=== PATIENT | female | born 2000 | race Caucasian/White ===

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

== ENCOUNTER 2022-10-20 08:45 | Emergency (ER) | payer OTHER, SELFPAY ==
[2022-10-20 08:48] VITALS: BP 133/102; PULSE 95; RESP 16; TEMP 36.4; O2SAT 100; BMI 25.7
--- NOTE | 2022-10-20 09:04 | RAD_ITS ---
EXAM: XR RIGHT ANKLE COMPLETE, 3 OR MORE VIEWS CLINICAL INDICATION: Right ankle injury. TECHNIQUE: Frontal, lateral and oblique views of the right ankle. This report was created using [email or web address] report generation technology. COMPARISON: None. FINDINGS: BONES/JOINTS: Unremarkable. No acute fracture. No subluxation. Normal alignment. Preservation of the joint space. No sclerotic or destructive changes observed. SOFT TISSUES: Unremarkable. No soft tissue swelling or gas. No radiopaque foreign body. RAD/Ankle min 3 Views IMPRESSION: Negative right ankle x-rays. Electronically Signed: Markie Altamirano MD at 9:21 EST ,
--- NOTE | 2022-10-20 09:04 | ED.VIS.LOWEX ---
HPI History of Present Illness Chief Complaint: Lower Extremity Injury Informant: patient Narrative Narrative: 22-year-old female states that she sustained an inversion injury to her right ankle while going down the stairs on Friday night. She states it hurts to walk. She has not been using crutches but walking on her heel. She is worried she might have a break. She points to a generalized area over the lateral ankle. She states that pain shoots up from the ankle all the way up her leg. PFSH PFSH Medical History pars 5 defect Spondylisthesis Home Medications Zyrtec 11/12/21 [History Last Taken Unknown] Allergy/AdvReac Type Severity Reaction Status Date / Time amoxicillin trihydrate Allergy Hives Verified 10/20/22 08:48 [From Augmentin] potassium clavulanate Allergy Hives Verified 10/20/22 08:48 [From Augmentin] sulfamethoxazole Allergy Hives Verified 10/20/22 08:48 [From Bactrim] trimethoprim [From Bactrim] Allergy Hives Verified 10/20/22 08:48 Social History Smoking Status: Never smoker ROS ROS ED Constitutional Constitutional ED: Denies chills or weight loss Eyes Eyes: Denies change in vision or diplopia ENT ENT ED: Denies ear pain, rhinorrhea or sore throat Cardiovascular Cardiovascular: Denies chest pain, orthopnea, palpitations or racing heartbeat Respiratory/Chest Respiratory/Chest: Denies cough, dyspnea or orthopnea Gastrointestinal Gastrointestinal: Denies abdominal pain, diarrhea, nausea or vomiting Genitourinary Genitourinary ED: Denies dysuria, hematuria or urinary frequency Musculoskeletal Musculoskeletal: Reports other Details: See HPI ; Denies arthralgias or myalgias Integumentary Denies abscess or rash Neurologic Neurologic: Denies headache(s) or weakness Psychiatric Psychiatric: Denies anxiety, depression, suicidal ideation or suicidal thoughts Endocrine Endocrinology: Denies polydipsia, polyphagia or polyuria Allergic/Immunologic Allergic/Immunologic ED: Denies mouth swelling, tongue swelling or urticaria EXAM Physical Exam Const Vital Signs: 10/20/22 08:48 Temperature 97.5 F L Temperature Source Temporal Pulse Rate 95 Respiratory Rate 16 Blood Pressure 133/102 H Blood Pressure Mean 112 Pulse Ox 100 Oxygen Delivery Method Room Air Positive well nourished and well developed General Appearance ED: well developed HEENT Reports normocephalic, head/scalp atraumatic and moist mucous membranes Eyes PERRL and EOMs intact bilaterally Neck full ROM, no lymphadenopathy, supple and no JVD Resp normal respiratory effort and clear to auscultation bilaterally Cardio regular rate, regular rhythm and no murmurs GI normal to inspection, nondistended, normoactive bowel sounds and non-tender Palpation: soft Back/Spine no CVA tenderness and normal ROM Extremity Extremity Narrative: Patient reports tenderness to palpation just inferior to the lateral malleolus. There is no swelling or ecchymosis noted. No fifth metatarsal or fibular head pain. No medial malleolus or posterior malleolus pain. Achilles palpates intact. General Extremety ED: Negative for edema General Extremity: Negative for edema Neuro oriented x3 and CN's II-XII intact bilaterally Sensorium / Orientation: alert Motor Exam: strength 5/5 throughout Psych mental status grossly normal Mood & Affect: Negative for depressed or tearful Skin no rashes or lesions noted and no wounds MDM MDM MDM Narrative Medical decision making narrative: My interpretation of the plain films of the ankle is no acute fracture. Radiology concurs. She will be placed in an air splint and crutches as needed. Follow-up 10 to 14 days if not improved Radiography Diagnostic Testing: Clinical Impression(s) from Imaging Studies Ankle X-Ray 10/20/22 09:04 IMPRESSION: Negative right ankle x-rays. Electronically Signed: Markie Altamirano MD at 9:21 EST , Discharge Plan Triage Chief Complaint: Lower Extremity Injury ED Provider: Rajan Mortensen Dx/Rx/DC Orders Clinical Impression: Ankle sprain Instructions: ED Sprain Ankle W X Ray Prescriptions: No Action Zyrte Primary Care Provider: Care Physician,No Primary Referrals: Matteo Bean DO [Med Staff - Active Staff] - 10-14 Days if not better Care Physician,No Primary [Primary Care Provider] - Disposition Disposition: Home, Self Care
[2022-10-20 09:56] VITALS: BP 121/68; PULSE 72; RESP 15; O2SAT 98
== END 2022-10-20 10:02 | disposition home or self-care (01) ==
PROVIDERS: Emergency Provider Emergency Medicine; Visit Provider Emergency Medicine
DX: S93.401A Sprain of unspecified ligament of right ankle, initial encounter (principal); X58.XXXA Exposure to other specified factors, initial encounter
CPT/HCPCS: 73610; 99284

== ENCOUNTER 2023-02-27 16:06 | Emergency (ER) | payer OTHER, SELFPAY ==
[2023-02-27 16:07] VITALS: BP 117/91; PULSE 98; RESP 18; TEMP 36; O2SAT 98; BMI 26.1
--- NOTE | 2023-02-27 16:31 | CT_ITS ---
STUDY: CT CERVICAL SPINE WITHOUT CONTRAST REASON FOR EXAM: Female, 22 years old. neck injury RADIATION DOSAGE (If Supplied By Facility): CTDIvol = ( 16.17 ) mGy, DLP = ( 264.99 ) mGycm TECHNIQUE: High resolution transaxial imaging was performed without contrast material. Sagittal and coronal images were reconstructed. Individualized dose optimization techniques were used for this CT. COMPARISON: None FINDINGS: Normal craniovertebral junction. Normal anterior atlantoaxial articulation. Normal odontoid process. Normal cervical lordosis. Normal vertebral bodies and posterior osseous elements. C2-3: Normal endplates. Normal disc height and morphology. Normal central canal and intervertebral neuroforamina. C3-4: Normal endplates. Normal disc height and morphology. Normal central canal and intervertebral neuroforamina. C4-5: Normal endplates. Normal disc height and morphology. Normal central canal and intervertebral neuroforamina. C5-6: Normal endplates. Normal disc height and morphology. Normal central canal and intervertebral neuroforamina. C6-7: Normal endplates. Normal disc height and morphology. Normal central canal and intervertebral neuroforamina. C7-T1: Normal endplates. Normal disc height and morphology. Normal central canal and intervertebral neuroforamina. Normal visualized soft tissue structures. CT/Spine Cervical without Contras IMPRESSION: Normal unenhanced CT examination of the cervical spine. Electronically Signed: Mane Kelley DO at 17:24 EDT Reading Location ID and State: [facility] / [place] Tel [phone], Service support ,
--- NOTE | 2023-02-27 16:31 | CT_ITS ---
STUDY: CT BRAIN WITHOUT CONTRAST REASON FOR EXAM: Female, 22 years old. head injury RADIATION DOSAGE (If Supplied By Facility): CTDIvol = ( 47.06 ) mGy, DLP = ( 819.74 ) mGycm TECHNIQUE: Transaxial CT imaging of the brain was performed without administration of intravenous contrast material. Individualized dose optimization techniques were used for this CT. COMPARISON: No relevant priors. FINDINGS: Normal soft tissue structures. Normal calvarium. Normal size ventricles and extra-axial spaces for the patient''s age. Normal white matter tracts of the cerebral hemispheres. Normal basal ganglia and thalami. Normal brainstem. Normal cerebellum. There is no intracranial hemorrhage. There are no findings of an acute ischemic infarction. Normal visualized paranasal sinuses. CT/Brain/Head without Contrast IMPRESSION: Normal unenhanced CT scan of the brain. Electronically Signed: Mane Kelley DO at 17:08 EDT ,
--- NOTE | 2023-02-27 17:00 | EX.ED.GENINJ ---
HPI History of Present Illness Chief Complaint: Head Injury Informant: patient Narrative Narrative: Presents leaving work after head injury current 8 AM nearly 9 hours ago. Multiple plastic bins fell on top of her head there is no loss of consciousness. There is bruising forehead and nose. No anticoagulants. Intermittent tunnel vision dizziness and nausea since then. No history of concussions. Reports lower neck pain. No arm weakness or paresthesias. Prior similar symptoms: No PFSH PFSH Medical History pars 5 defect Spondylisthesis Home Medications Zyrtec 1 tab PO.IVFORM DAILY 11/12/21 [History Last Taken Unknown] ondansetron 4 mg disintegrating tablet 4 mg PO Q8H PRN PRN Nausea #10 tabs 02/27/23 [Rx Last Taken Unknown] prazosin 1 mg capsule 1 mg PO QHS 02/27/23 [History Last Taken Unknown] propranolol 10 mg tablet 10 mg PO DAILY PRN PRN Chest Pain 02/27/23 [History Last Taken Unknown] sertraline 100 mg tablet 150 mg PO DAILY 02/27/23 [History Last Taken Unknown] Allergy/AdvReac Type Severity Reaction Status Date / Time amoxicillin trihydrate Allergy Hives Verified 02/27/23 16:06 [From Augmentin] potassium clavulanate Allergy Hives Verified 02/27/23 16:06 [From Augmentin] sulfamethoxazole Allergy Hives Verified 02/27/23 16:06 [From Bactrim] trimethoprim [From Bactrim] Allergy Hives Verified 02/27/23 16:06 Social History Smoking Status: Never smoker ROS ROS ED Constitutional Constitutional ED: Denies chills, fever(s) or sweats Eyes Eyes: Reports blurry vision; Denies change in vision ENT ENT ED: Denies dysphagia or sore throat Cardiovascular Cardiovascular: Denies chest pain, leg edema, palpitations or racing heartbeat Respiratory/Chest Respiratory/Chest: Denies cough, dyspnea or dyspnea on exertion Gastrointestinal Gastrointestinal: Reports nausea; Denies abdominal pain, diarrhea or vomiting Genitourinary Genitourinary ED: Denies dysuria, hematuria or urinary frequency Musculoskeletal Musculoskeletal: Reports neck pain; Denies back pain or extremity pain Integumentary Denies rash or wounds Neurologic Neurologic: Reports headache(s); Denies paresthesias or weakness EXAM Physical Exam Const Vital Signs: 02/27/23 16:07 Temperature 96.8 F L Temperature Source Temporal Pulse Rate 98 Respiratory Rate 18 Blood Pressure 117/91 H Blood Pressure Mean 99 Pulse Ox 98 Oxygen Delivery Method Room Air Positive well nourished and well developed Constitutional Narrative: GCS 15 General Appearance ED: well developed and NAD HEENT Reports TM's clear and moist mucous membranes HEENT Narrative: Ecchymosis noted right frontal right nasal bridge there is no septal hematoma. No hemotympanums. normocephalic Tympanic Membrane ED: Yes TM's clear Eyes PERRL, EOMs intact bilaterally and conjunctivae normal General Eye ED: Yes normal appearance of both eyes Neck full ROM, no lymphadenopathy and supple Neck Narrative: Slight midline tenderness no step-offs. General: Negative for tenderness Chest Wall Chest: Negative for tenderness Resp normal respiratory effort and normal air movement Effort and Inspection: symmetric chest movement; Negative for respiratory distress Cardio regular rate, regular rhythm and no murmurs Peripheral Pulses: pulses 2+ throughout GI normal to inspection, nondistended, normoactive bowel sounds and non-tender Palpation: Negative for guarding or rebound tenderness present Back/Spine no CVA tenderness and no thoracic nor lumbar tenderness Extremity normal to inspection General Extremety ED: Negative for edema or tenderness General Extremity: Negative for edema Neuro oriented x3, CN's II-XII intact bilaterally and no sensory deficits noted Sensorium / Orientation: awake and alert Skin no rashes or lesions noted and no wounds MDM MDM MDM Narrative Medical decision making narrative: Interventions / MDM: Differential diagnosis: Concussion, intracranial hemorrhage, cervical neck fracture, neck sprain Diagnosis considered but do not suspect: N/A My EKG interpretation: N/A Imaging independently reviewed and interpreted by myself: CT head: No intracranial hemorrhage, CT cervical spine no fracture or dislocation. External documents reviewed: N/A Test considered but not ordered:N/A ED course: Patient waxing waning concussion symptoms since her injury. This multiple boxes hit her head she has contusion forehead and nose. Due to waxing waning symptoms CT head and neck obtained shows no acute process treat with Tylenol and Zofran. Nausea improved. Still had headache. Concussion precautions and brain rest. Appropriate work restrictions given. Occupational health follow-up. Prescription for Zofran for home. Discussed using to needed. All questions were answered. Re-evaluation: stable Disposition discussed with patient/family/significant other: Patient Case discussed with consulting clinician: N/A Radiography Diagnostic Testing: Clinical Impression(s) from Imaging Studies Brain CT 02/27/23 16:31 IMPRESSION: Normal unenhanced CT scan of the brain. Electronically Signed: Mane KelleyDO at 17:08 EDT , Cervical Spine CT 02/27/23 16:31 IMPRESSION: Normal unenhanced CT examination of the cervical spine. Electronically Signed: Mane Kelley DO at 17:24 EDT , Discharge Plan Triage Chief Complaint: Head Injury ED Provider: Curly Little Dx/Rx/DC Orders Clinical Impression: Concussion without loss of consciousness, initial encounter, Contusion of face, Neck strain Instructions: Bruises (Contusions), Concussion Dc Prescriptions: New ondansetron [ondansetron] 4 mg tablet,disintegrating 4 mg PO Q8H PRN PRN (Reason: Nausea) Qty: 10 0RF No Action Zyrtec 1 tab PO.IVFORM DAILY prazosin 1 mg capsule 1 mg PO QHS Label Comments: take 1 capsule by mouth at bedtime sertraline 100 mg tablet 150 mg PO DAILY Label Comments: take 1 tablet by mouth once daily for 14 days then 1 AND 1/2 tablets once daily THEREAFTER propranolol 10 mg tablet 10 mg PO DAILY PRN PRN (Reason: Chest Pain) Label Comments: take 1 tablet by mouth twice a day if needed Primary Care Provider: Care Physician,No Primary Referrals: Care Physician,No Primary [Primary Care Provider] - Activity Restrictions/Additional Instructions: CT head and neck negative. Tylenol 1 g every 6 hours as needed. Zofran as needed. Follow-up with occupational health. Disposition Disposition: Home, Self Care Discharge Date/Time: 02/27/23 18:41
[2023-02-27] MEDS: Acetaminophen 500 MG Tablet 1000 MG PO (17:14)
[2023-02-27] MEDS: Ondansetron ODT 4 MG Tablet PO (17:14)
== END 2023-02-27 18:41 | disposition home or self-care (01) ==
PROVIDERS: Emergency Provider Emergency Medicine; Visit Provider Emergency Medicine
DX: S06.0X0A Concussion without loss of consciousness, initial encounter (principal); S16.1XXA Strain of muscle, fascia and tendon at neck level, initial encounter; S00.83XA Contusion of other part of head, initial encounter; W22.09XA Striking against other stationary object, initial encounter; Y99.0 Civilian activity done for income or pay; Y92.69 Other specified industrial and construction area as the place of occurrence of the external cause
CPT/HCPCS: 70450; 72125; 99283